=== PATIENT | male | born 1990 | race Caucasian/White ===

== ENCOUNTER → 2017-02-23 | Outpatient (REF) ==
[~2017-02-23] MED LIST: ANUSOL-HC SUPPO25 MG RC; CELEXA10 MG PO; KLONOPIN 0.5MG0.5 MG PO; LEXAPRO 10MG10 MG; LEXAPRO 10MG10 MG PO; NO HOME MEDICATIONS; SAPHRIS5 MG SL; SEROQUEL 2525 MG/TAB
== END ==
LOC: WSOH 11:11
DX: Z02.1 Encounter for pre-employment examination (principal)

== ENCOUNTER 2020-11-21 07:33 | Day surgery (SDC) | payer BC ==
[~2020-11-21] VITALS: Ht 182.9 cm; Wt 104.3 kg
[2020-11-21 07:47] VITALS: BP 154/88; PULSE 108; TEMP 97.9
[2020-11-21] MEDS ORDERED: NEURONTIN300 MG/CAP PO (07:55)
[2020-11-21] MEDS ORDERED: COGENTIN .0.5 MG/TAB PO (07:55)
[2020-11-21] MEDS ORDERED: PRIL40 PO (07:56)
[2020-11-21] MEDS ORDERED: LEXAPRO 10MG10 MG PO (07:56)
[2020-11-21] MEDS ORDERED: LATUDA60 MG PO (07:56)
[2020-11-21 08:46] VITALS: BP 126/98; PULSE 86
--- NOTE | 2020-11-21 08:49 | NUR ---
0846 PATIENT RESTING IN CHAIR, STILL QUITE SLEEPY, RESTING WITH EYES CLOSED. CHAIR RECLINED. NO COMPLAINTS.
--- NOTE | 2020-11-21 08:52 | NUR ---
0835 PATIENT TO RECOVERY BAY 5 POST PROCEDURE REPORT FROM RN. AMBULATES WITH ASSIST OF 2 TO CHAIR. STILL VERY SLEEPY. NO COMPLAINTS OF PAIN OR NAUSEA. IV SITE WITHOUT REDNESS OR SWELLING. VITAL SIGNS TAKEN. WARM BLANKETS GIVEN. RECLINING IN CHAIR. RESTS WITH EYES CLOSED.
[2020-11-21 09:04] VITALS: BP 108/65; PULSE 74; TEMP 98.2
[2020-11-21 09:19] VITALS: BP 112/79; PULSE 77
[2020-11-21 09:34] VITALS: BP 129/65; PULSE 75
--- NOTE | 2020-11-21 09:35 | NUR ---
PATIENT DOING WELL NO NAUSEA OR PAIN. READY TO GO HOME. WILL REMOVE IV AND BEGIN DISMISSAL PROCESS.
--- NOTE | 2020-11-21 09:43 | NUR ---
0943 IV REMOVED AND DISMISSAL INSTRUCTIONS GIVEN. INSTRUCTIONS EXPLAINED VERBALLY AND WRITTEN COPIES GIVEN WELL. PATIENT DENIES QUESTIONS AND VERBALIZES UNDERSTANDING.
--- NOTE | 2020-11-21 09:47 | NUR ---
0904 PATIENT TO RECOVERY BAY 6 VIA CART WITH RN. TO CHAIR WITH ASSIT OF ONE. MADE COMFORTABLE IN CHAIR WITH WARM BLANKET. NO COMPLAINTS OF PAIN OR NAUSEA. REPORT FROM RN. VITAL SIGNS TAKEN.
--- NOTE | 2020-11-21 09:48 | NUR ---
PATIENT ESCORTED TO FRONT DOOR WHERE JUDGE IS WAITING VIA WHEELCHAIR WITH RN
--- NOTE | 2020-11-21 09:51 | NUR ---
0998 PATIENT GIVEN JUICE AND MUFFIN, NO NAUSEA
== END 2020-11-21 09:48 | disposition home or self-care (01) ==
LOC: SDCO 07:33
DX: K22.70 Barrett's esophagus without dysplasia (principal); K21.9 Gastro-esophageal reflux disease without esophagitis; F41.9 Anxiety disorder, unspecified; K92.1 Melena; F32.9 Major depressive disorder, single episode, unspecified; G62.9 Polyneuropathy, unspecified
CPT/HCPCS: J2704; J7120

== ENCOUNTER 2023-12-30 13:47 | Day surgery (SDC) | payer BC ==
[~2023-12-30] VITALS: Ht 182.9 cm; Wt 104.3 kg
[~2023-12-30 13:47] MED LIST changes: +COGENTIN .0.5 MG/TAB PO; +LATUDA60 MG PO; +NEURONTIN300 MG/CAP PO; +PRIL40 PO
[2023-12-30] MEDS ORDERED: Ondansetron 4 MG/2 ML VIAL IV PRN (14:00)
[2023-12-30] MEDS ORDERED: LR 1,000 ML IV SCH (14:33)
[2023-12-30 14:50] VITALS: BP 143/104; PULSE 105; TEMP 98.2
[2023-12-30 15:15] VITALS: BP 102/69; PULSE 92; TEMP 98
[2023-12-30 15:30] VITALS: BP 108/72; PULSE 76
--- NOTE | 2023-12-30 15:50 | NUR ---
1515 RETURNS TO ROOM 3 PER CART. AWAKE, ALERT. RESP UNLABORED. AMBULATES TO RECLINER WITH STANDBY ASSIST. DENIES NAUSEA, AB/CHEST PAIN OR DYSPHAGIA. VITAL SIGNS OBTAINED. FATHER IN ROOM 1530 TOLERATES PO JUICE AND ICE CREAM WITHOUT NAUSEA, DISCHARGE INSTRUCTIONS REVIEWED. PATIENT VERBALIZES UNDERSTANDING. COPY PROVIDED IN DISCHARGE FOLDER. DR. CASTELLON VISITED WITH PATIEN IN PROCEDURE ROOM 7018 DRESSES SELF
== END 2023-12-30 15:50 | disposition home or self-care (01) ==
LOC: SDCO 13:47
DX: K22.70 Barrett's esophagus without dysplasia (principal); K21.00 Gastro-esophageal reflux disease with esophagitis, without bleeding
CPT/HCPCS: J7120